=== PATIENT | male | born 1950 | race Caucasian/White ===

== ENCOUNTER 2020-11-30 09:49 | Outpatient (RCR) | payer MEDICARE ==
[2020-11-12 13:24] LABS: BASOPHILS % 0.2 % (0.0-1.0); EOSINOPHILS # (AUTO) 0.1 (0.0-0.4); HEMATOCRIT 43.9 % (38.2-49.6); HEMOGLOBIN 15.2 g/dL (14.0-18.0); LYMPHOCYTES # (AUTO) 0.8 (1.0-3.2); LYMPHOCYTES % 12.4 % (18.0-39.1); MEAN CORPUSCULAR HEMOGLOBIN 32.2 pg (28-32); MEAN CORPUSCULAR HGB CONC 34.6 g/dL (31-35); MONOCYTES # (AUTO) 0.5 (0.2-0.8); NEUTROPHILS # (AUTO) 4.8 (2.1-6.9); NEUTROPHILS % 78.1 % (38.7-80.0); PLATELET COUNT 209 x10e3/uL (140-360); RED BLOOD COUNT 4.72 x10e6/uL (4.3-5.7); RED CELL DISTRIBUTION WIDTH 13.3 % (11.7-14.4)
[2020-11-12 13:55] LABS: ALBUMIN 3.8 g/dL (3.5-5.0); ALBUMIN/GLOBULIN RATIO 1.1 (0.8-2.0); ANION GAP 17.2 mmol/L (8-16); CALCIUM 9.1 mg/dL (8.4-10.2); CREATININE, SERUM 0.79 mg/dL (0.72-1.25); POTASSIUM 4.2 mmol/L (3.5-5.1)
[~2020-11-30 09:49] MED LIST: COLLAGENASE OINTMENT 30 GM TUBE ONE; LIDOCAINE VISC 2% SOLN 15 ML UDC ONE
== END 2020-12-09 ==
LOC: WCC 09:49
PROVIDERS: ATTEND Internal Medicine Infectious Disease
DX: S11.80XA Unspecified open wound of other specified part of neck, initial encounter (principal); L59.8 Other specified disorders of the skin and subcutaneous tissue related to radiation; Y83.8 Other surgical procedures as the cause of abnormal reaction of the patient, or of later complication, without mention of misadventure at the time of the procedure; I10 Essential (primary) hypertension; Z85.831 Personal history of malignant neoplasm of soft tissue
CPT/HCPCS: 36415; 80053; 84134; 85025

== ENCOUNTER 2021-01-25 09:59 | Outpatient (RCR) | payer MEDICARE ==
[2021-01-25] MEDS ORDERED: LIDOCAINE VISC 2% SOLN 15 ML UDC ONE (15:07)
== END 2021-02-08 ==
LOC: WCC 09:59
PROVIDERS: ATTEND Internal Medicine Infectious Disease
DX: S11.80XA Unspecified open wound of other specified part of neck, initial encounter (principal); T66.XXXA Radiation sickness, unspecified, initial encounter; Y83.8 Other surgical procedures as the cause of abnormal reaction of the patient, or of later complication, without mention of misadventure at the time of the procedure; I10 Essential (primary) hypertension; Z85.831 Personal history of malignant neoplasm of soft tissue

== ENCOUNTER 2021-02-15 10:11 | Outpatient (RCR) | payer MEDICARE | END 2021-03-11 | LOC: WCC 10:11 | PROVIDERS: ATTEND Plastic Surgery | DX: S11.80XA Unspecified open wound of other specified part of neck, initial encounter (principal); Y83.8 Other surgical procedures as the cause of abnormal reaction of the patient, or of later complication, without mention of misadventure at the time of the procedure; L59.8 Other specified disorders of the skin and subcutaneous tissue related to radiation; I10 Essential (primary) hypertension; Z85.831 Personal history of malignant neoplasm of soft tissue ==

== ENCOUNTER 2021-03-22 08:57 | Outpatient (RCR) | payer MEDICARE ==
[2021-03-22] MEDS ORDERED: CLONIDINE HCL0.1 MG PO (13:03)
[2021-03-22] MEDS ORDERED: PENTOXIFYLLINE400 MG PO (13:03)
[2021-03-22] MEDS ORDERED: ASPIRIN CHEW81 MG PO (13:03)
== END 2021-04-08 ==
LOC: WCC 08:57
PROVIDERS: ATTEND Internal Medicine Infectious Disease
DX: S11.80XA Unspecified open wound of other specified part of neck, initial encounter (principal); Y83.8 Other surgical procedures as the cause of abnormal reaction of the patient, or of later complication, without mention of misadventure at the time of the procedure; L59.8 Other specified disorders of the skin and subcutaneous tissue related to radiation; I10 Essential (primary) hypertension; Z85.831 Personal history of malignant neoplasm of soft tissue

== ENCOUNTER 2021-03-22 12:12 | Inpatient (IN) | payer MEDICARE ==
[~2021-03-22] VITALS: Ht 177.8 cm; Wt 74.8 kg
[2021-03-22 12:43] VITALS: BP 242/126
[2021-03-22] MEDS ORDERED: SODIUM CHLORIDE FLUSH 10 ML SYR INJ PRN (13:00)
[2021-03-22] MEDS ORDERED: ASPIRIN CHEW81 MG PO (13:03)
[2021-03-22] MEDS ORDERED: PENTOXIFYLLINE400 MG PO (13:03)
[2021-03-22] MEDS ORDERED: CLONIDINE HCL0.1 MG PO (13:03)
[2021-03-22] MEDS ORDERED: CLONIDINE HCL 0.1 MG TAB PO SCH (13:15)
[2021-03-22] MEDS: HYDROCODONE/APAP 5MG-325MG TAB PO PRN ×2 (13:30→19:35)
[2021-03-22] MEDS: ASPIRIN 81 MG CHEW TAB PO SCH (13:44)
[2021-03-22] MEDS: PENTOXIFYLLINE 400 MG TAB CR PO SCH (13:45)
[2021-03-22 14:22] VITALS: BP 242/126
[2021-03-22 14:23] VITALS: BP 242/126
[2021-03-22 14:54] LABS: BASOPHILS % 0.1 % (0.0-1.0); EOSINOPHILS % 0.2 % (0.0-6.0); HEMATOCRIT 42.8 % (38.2-49.6); HEMOGLOBIN 14.4 g/dL (14.0-18.0); LYMPHOCYTES # (AUTO) 0.6 (1.0-3.2); LYMPHOCYTES % 6.4 % (18.0-39.1); MEAN CORPUSCULAR HEMOGLOBIN 32.9 pg (28-32); MEAN CORPUSCULAR HGB CONC 33.6 g/dL (31-35); MEAN CORPUSCULAR VOLUME 97.7 fL (81-99); MONOCYTES # (AUTO) 0.6 (0.2-0.8); MONOCYTES % 5.8 % (4.4-11.3); NEUTROPHILS # (AUTO) 8.4 (2.1-6.9); NEUTROPHILS % 87.1 % (38.7-80.0); PLATELET COUNT 222 x10e3/uL (140-360); RED BLOOD COUNT 4.38 x10e6/uL (4.3-5.7)
[2021-03-22 15:10] LABS: ANION GAP 20.1 mmol/L (8-16); CALCIUM 8.9 mg/dL (8.4-10.2); CREATININE, SERUM 0.85 mg/dL (0.72-1.25); POTASSIUM 4.1 mmol/L (3.5-5.1)
[2021-03-22] MEDS ORDERED: SODIUM CHLORIDE 0.9% 250ML 250 ML ONE (15:26)
[2021-03-22] MEDS: PIPERACILLIN/TAZOBACTAM 3.375 GM in SODIUM CHLORIDE 0.9% 50ML 50 ML IV SCH ×2 (15:46→21:38)
[2021-03-22 16:04] VITALS: BP 209/105
[2021-03-22] MEDS: Vancomycin IV 1 GM in SODIUM CHLORIDE 0.9% 250ML 250 ML IV SCH (17:36)
[2021-03-22] MEDS: HYDRALAZINE HCL 20 MG/ML VIAL IV PRN (17:36)
[2021-03-22 20:00] VITALS: BP 199/98
[2021-03-22 21:00] VITALS: BP 199/98
[2021-03-22] MEDS ORDERED: CLONIDINE HCL 0.1 MG TAB PO ONE (22:45)
[2021-03-22] MEDS ORDERED: Morphine 2mg Syringe 2 MG/ML SYR IV PRN (22:45)
[2021-03-23] VITALS (11 sets, daily range): BP systolic 148–218; BP diastolic 68–138
[2021-03-23] MEDS: HYDRALAZINE HCL 20 MG/ML VIAL IV PRN ×2 (00:46→09:01)
[2021-03-23] MEDS: HYDROCODONE/APAP 5MG-325MG TAB PO PRN (02:53)
[2021-03-23] MEDS: PIPERACILLIN/TAZOBACTAM 3.375 GM in SODIUM CHLORIDE 0.9% 50ML 50 ML IV SCH ×3 (05:23→21:23)
[2021-03-23] MEDS: Vancomycin IV 1 GM in SODIUM CHLORIDE 0.9% 250ML 250 ML IV SCH ×2 (05:26→18:20)
[2021-03-23] MEDS: PENTOXIFYLLINE 400 MG TAB CR PO SCH (09:00)
[2021-03-23] MEDS ORDERED: CLONIDINE HCL 0.1 MG TAB PO SCH (09:00)
[2021-03-23] MEDS: ASPIRIN 81 MG CHEW TAB PO SCH (09:00)
[2021-03-23] MEDS: LOSARTAN POTASSIUM 25 MG TAB PO SCH (11:59)
[2021-03-23] MEDS: CLONIDINE HCL 0.1 MG TAB PO SCH (16:03)
[2021-03-24] VITALS: BP 164/91
[2021-03-24 04:00] VITALS: BP 183/85
[2021-03-24] MEDS: PIPERACILLIN/TAZOBACTAM 3.375 GM in SODIUM CHLORIDE 0.9% 50ML 50 ML IV SCH ×3 (06:17→22:03)
[2021-03-24] MEDS: HYDRALAZINE HCL 20 MG/ML VIAL IV PRN ×2 (06:18→13:07)
[2021-03-24 08:41] VITALS: BP 183/85
[2021-03-24] MEDS: CHLORTHALIDONE 25 MG TAB PO SCH (08:47)
[2021-03-24] MEDS: Vancomycin IV 1 GM in SODIUM CHLORIDE 0.9% 250ML 250 ML IV SCH ×2 (08:47→18:26)
[2021-03-24] MEDS: LOSARTAN POTASSIUM 25 MG TAB PO SCH (08:47)
[2021-03-24] MEDS: PENTOXIFYLLINE 400 MG TAB CR PO SCH (08:47)
[2021-03-24] MEDS: ASPIRIN 81 MG CHEW TAB PO SCH (08:47)
[2021-03-24] MEDS: ACETAMINOPHEN 325 MG TAB PO PRN ×2 (14:05→23:29)
[2021-03-24] MEDS: CLONIDINE HCL 0.1 MG TAB PO SCH (17:26)
[2021-03-24 20:00] VITALS: BP 134/83
[2021-03-25 04:00] VITALS: BP 198/88
[2021-03-25] MEDS: PIPERACILLIN/TAZOBACTAM 3.375 GM in SODIUM CHLORIDE 0.9% 50ML 50 ML IV SCH (05:49)
[2021-03-25] MEDS: Vancomycin IV 1 GM in SODIUM CHLORIDE 0.9% 250ML 250 ML IV SCH (06:16)
[2021-03-25] MEDS: HYDRALAZINE HCL 20 MG/ML VIAL IV PRN (06:16)
[2021-03-25 09:05] VITALS: BP 190/92
[2021-03-25] MEDS: ASPIRIN 81 MG CHEW TAB PO SCH (09:10)
[2021-03-25] MEDS: PENTOXIFYLLINE 400 MG TAB CR PO SCH (09:11)
[2021-03-25] MEDS: CHLORTHALIDONE 25 MG TAB PO SCH (09:11)
[2021-03-25] MEDS: LOSARTAN POTASSIUM 25 MG TAB PO SCH (09:11)
[2021-03-25 09:50] VITALS: BP 190/92
== END 2021-03-25 10:02 | disposition left against medical advice (07) | DRG 607 ==
LOC: MED/SURG3 12:12
PROVIDERS: ADMIT Internal Medicine; ATTEND Internal Medicine
DX: L59.8 Other specified disorders of the skin and subcutaneous tissue related to radiation (principal); I96 Gangrene, not elsewhere classified; B87.1 Wound myiasis; T81.49XS Infection following a procedure, other surgical site, sequela; T81.89XA Other complications of procedures, not elsewhere classified, initial encounter; Z85.831 Personal history of malignant neoplasm of soft tissue; Z85.89 Personal history of malignant neoplasm of other organs and systems; Z20.822 Contact with and (suspected) exposure to COVID-19; Z92.3 Personal history of irradiation; Y84.2 Radiological procedure and radiotherapy as the cause of abnormal reaction of the patient, or of later complication, without mention of misadventure at the time of the procedure; M27.2 Inflammatory conditions of jaws; I10 Essential (primary) hypertension
CPT/HCPCS: 36415; 71045; 80048; 80202; 85025; 99251; J0360; J2270; J2543; J3370; J7050; U0002